=== PATIENT | female | born 1970 | race Caucasian/White ===

== ENCOUNTER → 2018-07-24 | Outpatient (CLI) | payer OTHER | LOC: MC.RAD 09:30 | DX: Z12.31 Encounter for screening mammogram for malignant neoplasm of breast (principal) ==

== ENCOUNTER → 2020-11-10 | Outpatient (CLI) | payer OTHER | LOC: MC.RAD 11:05 | DX: Z12.31 Encounter for screening mammogram for malignant neoplasm of breast (principal) ==

== ENCOUNTER → 2024-01-09 | Outpatient (CLI) | payer OTHER | LOC: MC.RAD 12-20 11:00 | DX: Z12.31 Encounter for screening mammogram for malignant neoplasm of breast (principal) ==